=== PATIENT | male | born 1955 | race Caucasian/White ===

== ENCOUNTER → 2020-03-09 | Outpatient (CLI) | payer BC ==
[2020-03-09 15:13] LABS: HCT 45.7 % (39.0-53.0); HGB 15.5 gm/dL (13.0-17.5); MCH 32.5 pg (25.0-35.0); MCV 95.6 fL (80.0-100.0); Mean Platelet Volume 7.9; Platelet Count 269 k/uL (150-450); RBC 4.78 m/uL (4.30-5.90); RDW 12.8 % (11.5-15.5); WBC 6.9 k/uL (3.8-10.6)
[2020-03-09 16:26] LABS: Appearance,Urine Clear (Clear); Bilirubin,Urine Negative (Negative); Blood,Urine Negative (Negative); Color,Urine Light Yellow; Glucose,Urine (UA) Negative (Negative); Ketones,Urine Negative (Negative); Leukocyte Esterase,Urine Negative (Negative); Nitrite,Urine Negative (Negative); Protein,Urine Negative (Negative); Specific Gravity,Urine 1.008 (1.001-1.035); Urobilinogen,Urine <2.0 mg/dL (<2.0)
[2020-03-10 00:03] LABS: African American GFR (CKD) 109.4 (60.0-200.0); Albumin 4.8 g/dL (3.80-4.90); Albumin/Globulin Ratio 1.78 (1.60-3.17); Anion Gap 11.5 mmol/L (4.00-12.00); BUN/Creat Ratio 13.75 Ratio (12.00-20.00); Calcium 9.9 mg/dL (8.7-10.3); Carbon Dioxide 23.5 mmol/L (21.6-31.8); Globulin 2.7 g/dL (1.6-3.3); Non-African American GFR(CKD) 94.4 (60.0-200.0); Potassium 4.2 mmol/L (3.5-5.5); Total Bilirubin 0.7 mg/dL (0.2-1.2); Total Protein 7.5 g/dL (6.2-8.2)
[2020-03-10 04:26] LABS: INR 0.99 (0.90-1.11); Partial Thromboplastin Time 27.1 sec (24.7-29.9); Prothrombin Time 10.6 sec (9.9-11.9)
== END | disposition home or self-care (01) ==
LOC: LABWHC1 13:31
PROVIDERS: ATTEND Orthopaedic Surgery
DX: Z01.818 Encounter for other preprocedural examination (principal)
CPT/HCPCS: 36415; 80053; 81003; 85027; 85610; 85730; 86850; 86900; 86901; 87070

== ENCOUNTER 2020-03-21 07:00 | Day surgery (SDC) | payer BC ==
[2020-03-14 09:10] VITALS: BMI 28.8
[~2020-03-21 07:00] MED LIST: ACETAMINOPHEN TAB 500 MG TAB PO ONE; DEXAMETHASONE SOD PHOSPHATE 10 MG/ML 1 ML VIAL IV ONE; GABAPENTIN 300 MG CAP PO ONE; HYDROmorphone 0.5 MG/0.5 ML SYRINGE IVP PRN; MELOXICAM 7.5 MG TAB PO ONE; MIDAZOLAM 2 MG/2 ML VIAL IV PRN; ONDANSETRON 4 MG/2 ML VIAL IVP ONE; ROPIVACAINE 246.25 MG, EPINEPHrine 0.5 MG, KETOROLAC 30 MG, cloNIDine HCL/PF 80 MCG, WA... MISCELLANE ONE; SCOPOLAMINE 1.5MG/72HR PATCH TRANSDERM ONE; TRANEXAMIC ACID 1,000 MG in SODIUM CHLORIDE 0.9% 100 ML IVPB ONE
[2020-03-21] MEDS ORDERED: ONDANSETRON 4 MG/2 ML VIAL ONE (07:25)
[2020-03-21] MEDS ORDERED: ACETAMINOPHEN TAB 500 MG TAB ONE (07:25)
[2020-03-21] MEDS: LACTATED RINGERS 1,000 ML IV SCH (07:30)
[2020-03-21] MEDS ORDERED: SODIUM CHLORIDE 0.9% IRRIG 1,000 ML BTL IRRIGATION ONE (08:36)
[2020-03-21] MEDS ORDERED: SODIUM CHLORIDE 0.9% 100 ML BAG ONE (08:36)
[2020-03-21] MEDS ORDERED: MIDAZOLAM 2 MG/2 ML VIAL ONE (08:36)
[2020-03-21] MEDS ORDERED: PHENYLEPHRINE-0.9% NACL SYG 1 MG/10 ML SYRINGE ONE (08:36)
[2020-03-21] MEDS ORDERED: TRANEXAMIC ACID 1,000 MG/10 ML VIAL ONE (08:36)
[2020-03-21] MEDS ORDERED: fentaNYL (PF) 50 MCG/ML 2 ML AMP ONE (08:36)
[2020-03-21] MEDS ORDERED: HEPARIN SODIUM,PORCINE 10,000 UNIT/ML 1 ML VIAL ONE (08:36)
[2020-03-21] MEDS ORDERED: PROPOFOL 10 MG/ML 20 ML VIAL IV ONE (08:36)
[2020-03-21] MEDS ORDERED: LACTATED RINGERS 1,000 ML IV ONE (09:49)
--- NOTE | 2020-03-21 10:09 | P.OP ---
Date of Procedure: 03/21/20 Preoperative Diagnosis: Severe osteoarthritis right hip Postoperative Diagnosis: Severe osteoarthritis right hip Procedure(s) Performed: Right total hip arthroplasty with a direct anterior approach Implants: Ya and nephew Polarstem size 6 standard Ya & Nephew R3, 3 hole acetabular shell, 52 mm Ya & Nephew reflection 6.5 mm cancellus screw, 20 mm 2 Ya & Nephew R3, XLPE 20 acetabular liner Ya & Nephew Oxinium femoral head 36 m, +8 All components were press-fit. The articulation is Oxinium on polyethylene. Anesthesia: spinal Surgeon: Dionicio Pedro Terminal Block Assembler #1: Johnny Raphael Estimated Blood Loss (ml): 100 Pathology: other (Femoral head) Condition: stable Disposition: PACU Indications for Procedure: After failure of conservative treatment we discussed the surgical and nonsurgical treatment options at length. Patient wishes to proceed with a total hip arthroplasty with a direct anterior approach. Complications specific to this procedure were discussed at length, including but not limited to infection, leg length discrepancy, dislocation, and nerve injury. Covid-19 was also discussed at length with the patient, and they are aware of the current policies and procedures. The patient was given the option of delaying surgery, but they elect to proceed knowing these risks. Patient is aware of all these complications and informed consent was obtained Operative Findings: The operative findings are consistent with severe osteoarthritis of the right hip Description of Procedure: Patient was seen and evaluated in the preoperative area, consent was reviewed, and the surgical site was marked with a skin marker. Patient was then brought to the operating room and given prophylactic antibiotics intravenously. 1 g of Tranexamic acid was also given. A spinal anesthetic was administered by the anesthesia department. The patient was then placed on the Westover table with the bony prominences well-padded. The hip area was then prepped and draped in usual sterile fashion. A universal timeout was then performed, which confirmed the patient's name, surgical site, ALLERGIES, and procedure being performed. Next the incision site was located at 1 cm distal and 1 cm lateral to the anterior superior iliac spine. The skin and subcutaneous tissues were sharply incised. Incision was carefully dissected down to the fascia overlying the tensor fascia gregory muscle. This fascia was then incised in line with the incision. Next, using blunt finger dissection, the tensor fascia gregory muscle was dissected off its investing fascia. The muscle was then carefully retracted laterally with a cobra retractor over the lateral neck of the femur. Next, the circumflex vessels were identified and cauterized using the AquaMantis device. The anterior hip capsule was then exposed. The capsule was then opened and an inverted T fashion. Cobra retractors were then placed intracapsularly. The proximal femur was then visualized. The femoral neck was then osteotomized appropriate level above the lesser trochanter. Small amount of traction was placed with the Westover table. A small wedge of bone was then removed from the remaining femoral head. Next, using a corkscrew femoral head was easily removed from the acetabulum. On gross visual inspection, the femoral head had complete loss of articular cartilage in multiple periarticular osteophytes. Attention was then turned to the acetabulum. the acetabulum was exposed and any remaining labrum was excised. Sequential reaming of the acetabulum was performed using fluoroscopic guidance. When the appropriate size was reached, a trial was then placed. The position and fit of the trial was checked with fluoroscopy. The trial was then removed. Then, using fluoroscopic guidance, the final implant was impacted at 20 of anteversion and 40 of abduction, and fully seated in the acetabulum. 2 screws were then placed in the acetabulum. Again fluoroscopy was used to check position of the screws. Next, the liner was then impacted, with a 20 elevated liner located in the anterior superior quadrant. Component locking was confirmed. Attention was then directed to the femur. With the aid of the Westover table, the femur was externally rotated to approximately 130, extended, and abducted under the opposite leg. A side hook was then placed under the proximal femur, and the side hook elevator was used to elevate the proximal femur. Retractors were then placed. A capsular release was performed, as well as a release of the conjoined tendon, which afforded excellent visualization of the proximal femur. Next, a box osteotome was used to lateralize the proximal femur. A former hand was then used to locate the femoral canal. Sequential broaching was then performed with appropriate size which afforded excellent fixation in the proximal femur. A trial was then placed with appropriate head and neck, and the hip was gently reduced with the aid of the Westover table. Fluoroscopy was then used to check position of the components, as well as to ensure equal leg lengths. The hip was then gently dislocated and the trials were then removed. Final implants were then impacted and the hip was again reduced. Final fluoroscopic x-rays confirmed that the components were in anatomic position, as well as equal leg lengths. The hip was also taken through range of motion, and found to be stable. The hip was then copiously irrigated with antibiotic solution with pulsatile lavage. The hip was then irrigated with Irrisept solution. The soft tissues were then injected with a ropivacaine solution, which consisted of 246.25 mg of ropivacaine, 0.5 mg of epinephrine, 30 mg of Toradol, 80 g of clonidine, and 48.45 mL of sterile water, for a total of 100 mL of fluid injected. A second dose of 1 g of Tranexamic acid was also given. the fascia was then closed with 2-0 strata fix suture. The subcutaneous tissue was closed with 3-0 Vicryl. The subcuticular tissue was closed with 3-0 strata fix suture. The skin was then closed with Dermabond glue and a sterile silver dressing. The patient was then transferred to the recovery room in stable condition. The recycling assistant SARAI Cooper was required due to the complexity of surgery, and the need for skilled neurosurgical nurse for positioning, draping, exposure, retraction, and closure of the wound.
--- NOTE | 2020-03-21 10:19 | XR ---
Fluoroscopy History: TOTAL RIGHT HIP TOTAL RIGHT HIP. FL TIME 49 SEC. 2 IMAGES SCANNED
[2020-03-21] MEDS ORDERED: hydrOXYzine pamoate 25 MG CAP PO PRN (10:49)
[2020-03-21] MEDS ORDERED: ONDANSETRON 4 MG/2 ML VIAL IVP PRN (10:49)
[2020-03-21] MEDS ORDERED: NALOXONE 0.4 MG/ML 1 ML VIAL IV PRN (10:49)
[2020-03-21] MEDS ORDERED: HYDROmorphone 1 MG/ML 1 ML SYRINGE IVP PRN (10:49)
[2020-03-21] MEDS ORDERED: HYDROcodone/APAP 5-325MG 1 EACH TAB PO PRN ×2 (10:49)
[2020-03-21] MEDS ORDERED: HYDROmorphone 0.5 MG/0.5 ML SYRINGE IVP PRN (10:49)
--- NOTE | 2020-03-21 11:59 | XR ---
EXAMINATION TYPE: XR Hip Limited RT DATE OF EXAM: 03/21/2020 CLINICAL HISTORY: Postoperative evaluation TECHNIQUE: Single portable view of the right hip was submitted. FINDINGS: Noted are changes of total hip arthroplasty with femoral and acetabular components appearin g well seated. Alignment is anatomic. Postsurgical soft tissue changes are evident. IMPRESSION: Satisfactory postoperative alignment
[2020-03-21] MEDS: ASPIRIN 325 MG TAB PO SCH (20:38)
[2020-03-21] MEDS ORDERED: ATORVASTATIN 20 MG TAB PO SCH (21:00)
[2020-03-21] MEDS ORDERED: SENNOSIDES-DOCUSATE SODIUM 1 EACH TAB PO SCH (21:00)
--- NOTE | 2020-03-21 21:10 | P.CONS ---
History of Present Illness - Reason for Consult Consult date: 03/21/20 Medical management Requesting physician: Dionicio Pedro - Chief Complaint Right hip surgery - History of Present Illness Consultation: This is a very pleasant [address] Chavez. Had undergone right total hip arthroplasty. Chronic stable medical conditions include hyperlipidemia, osteoarthritis hypertension. Patient a full cardiac workup prior to surgery. A ll negative. Postprocedure patient doing well. Pain is controlled. Already walked in the hallway. No nausea vomiting. Did tolerate his supper. Review of systems: GEN.: None EYES: None HEENT: None NECK: None RESPIRATORY: None CARDIOVASCULAR: None GASTROINTESTINAL: None GENITOURINARY: None MUSCULOSKELETAL: Joint pains LYMPHATICS: None HEMATOLOGICAL: None PSYCHIATRY: None NEUROLOGICAL: None Past medical history to include: Hyperlipidemia, hypertension, osteoarthritis Social history: Alcohol occasionally. Smoked half a pack a day for about 31 years, stopping 2012. . Retired schoolteacher Physical examination: VITAL SIGNS: 97.8, 67, 16, 123/75, 96% room air GENERAL: BMI 28.9, sitting up in a chair, comfortable. EYES: Pupils equal. Conjunctiva normal. HEENT: External appearance of nose and ears normal, oral cavity grossly normal. NECK: JVD not raised; masses not palpable. HEART: First and second heart sounds are normal; no edema. LUNGS: Respiratory rate normal; clear to auscultation. ABDOMEN: Soft, nontender, liver spleen not palpable, no masses palpable. PSYCH: Alert and oriented x3; mood and affect normal. MUSCULAR skeletal: Dressing over the right hip NEUROLOGICAL: Cranial nerves grossly intact; no facial asymmetry, power and sensation grossly intact. LYMPHATICS: No lymph nodes palpable in the axilla and neck INVESTIGATIONS, reviewed in the clinical context: From 03/09/2020 White count 6.9 hemoglobin 15.5 platelets 269 potassium 4.2 creatinine 0.8 Assessment: -Right total hip arthroplasty -Hyperlipidemia -Primary osteoarthritis -Essential hypertension Plan: Home medications and resume. Patient is on aspirin for DVT prophylaxis per Dr. Quincy guerrero. Care was discussed with the patient. Questions answered. Thank you Dr. Pedro Past Medical History Past Medical History: Cancer, Hyperlipidemia, Osteoarthritis (OA) Additional Past Medical History / Comment(s): HX SKIN CA- LT CHIN- BASAL CELL 1990, HEMORRHOIDS-DIVERTICULOSIS History of Any Multi-Drug Resistant Organisms: None Reported Past Surgical History: Hernia Repair Additional Past Surgical History / Comment(s): COLONOSCOPY(HX POLYPS). INGUINAL HERNIA A CHILD- UNKNOWN SIDE. SKIN CA- BASAL CELL REMOVED 1989 Past Anesthesia/Blood Transfusion Reactions: No Reported Reaction Past Psychological History: No Psychological Hx Reported Smoking Status: Former smoker Past Alcohol Use History: Occasional Additional Past Alcohol Use History / Comment(s): STARTED SMOKING AT AGE 21 QUIT AT AGE 52 SMOKED 1/2PPD Past Drug Use History: Marijuana Additional Drug Use History / Comment(s): OCCASIONAL USE - Past Family History Father Family Medical History: Cancer Additional Family Medical History / Comment(s): LUNG CANCER Medications and Allergies Home Medications Medication Instructions Recorded Confirmed Type Atorvastatin Calcium [Lipitor] 20 mg PO HS 02/03/14 03/21/20 History amLODIPine [Norvasc] 5 mg PO DAILY 03/21/20 03/21/20 History Allergies Allergy/AdvReac Type Severity Reaction Status Date / Time No Known Allergies Allergy Verified 03/21/20 07:19 Physical Exam Vitals: Vital Signs Temp Pulse Pulse Resp BP Pulse Ox 03/21/20 15:21 67 16 03/21/20 13:58 97.8 F 67 16 123/75 03/21/20 13:15 67 16 100/64 96 03/21/20 12:45 65 16 102/60 96 03/21/20 12:30 62 16 100/59 92 L 03/21/20 12:15 56 L 16 99/57 95 03/21/20 12:00 58 L 16 98/54 98 03/21/20 11:52 72 18 100/62 96 03/21/20 11:25 57 L 16 109/63 96 03/21/20 11:10 50 L 16 102/62 98 03/21/20 10:55 53 L 16 107/63 98 03/21/20 10:40 97.2 F L 65 16 97/65 95 03/21/20 07:22 98.8 F 81 17 147/79 98 Intake and Output 03/21/20 03/21/20 03/21/20 06:59 14:59 22:59 Intake Total 1900 Output Total 100 Balance 1800 Intake: IV 1900 Output: Estimated Blood Loss 100 Other: # Voids 1 Weight 86.183 kg
[2020-03-21] MEDS: HYDROmorphone 0.5 MG/0.5 ML SYRINGE IVP PRN (23:33)
[2020-03-22] MEDS: HYDROmorphone 0.5 MG/0.5 ML SYRINGE IVP PRN (03:22)
[2020-03-22] MEDS: LACTATED RINGERS 1,000 ML IV SCH (06:54)
[2020-03-22 07:20] VITALS: BP 136/79; PULSE 78; RESP 16; TEMP 98.7
[2020-03-22 08:04] LABS: Basophils % (A) 0 %; Eosinophils % (A) 0 %; HCT 39.3 % (39.0-53.0); HGB 12.9 gm/dL (13.0-17.5); Lymphocytes # (A) 1.6 k/uL (1.0-4.8); Lymphocytes % (A) 21 %; MCH 31.2 pg (25.0-35.0); MCHC 32.7 g/dL (31.0-37.0); MCV 95.4 fL (80.0-100.0); Mean Platelet Volume 8.1; Monocytes # (A) 0.3 k/uL (0-1.0); Monocytes % (A) 4 %; Neutrophils # (A) 5.7 k/uL (1.3-7.7); Neutrophils % (A) 74 %; Platelet Count 250 k/uL (150-450); RBC 4.12 m/uL (4.30-5.90); RDW 12.5 % (11.5-15.5); WBC 7.7 k/uL (3.8-10.6)
[2020-03-22] MEDS: ASPIRIN 325 MG TAB PO SCH (08:51)
[2020-03-22] MEDS ORDERED: amLODIPine 5 MG TAB PO SCH (09:00)
--- NOTE | 2020-03-22 12:11 | P.DS ---
Providers Expected date of discharge: 03/22/20 Attending physician: Dionicio Pedro Consults: 03/21/20 10:49 Consult Physician Routine Consulting Provider: Neel Noel Consult Reason/Comments: medical management Do you want consulting provider notified?: Yes Primary care physician: Delgado Chavez - Discharge Diagnosis(es) (1) Osteoarthritis of right hip Current Visit: Yes Status: Acute (2) Status post total hip replacement, right Current Visit: Yes Status: Acute Hospital Course: This is a 64-year-old male with known history of degenerative arthritis of the right hip. The patient presents for evaluation. After discussion and consideration patient elects to proceed with total hip arthroplasty. The patient is seen preoperatively by Dr. Pedro and cleared for surgery. Patient is admitted to [facility] on 03/21/2020 for total hip arthr oplasty. The procedures performed without complication or sequelae. The patient is doing well postoperatively. Labs and vital signs are stable on day of discharge. On day of discharge patient's hip incision is healing well. There is minimal erythema. There is no drainage noted at this time. There is minimal soft tissue swelling to the hip and thigh. Patient has full foot and ankle motion w ithout difficulty or pain. Neurovascular status to the right lower extremity is intact. Patient is discharged home in good condition. Opioid start talking form is discussed and signed at bedside. Please see med rec for accurate list of home medications. Plan - Discharge Summary Discharge Rx Participant: Yes New Discharge Prescriptions: New Sennosides-Docusate Sodium [Senokot-S] 2 each PO HS #30 tab Aspirin 325 mg PO BID #60 tab HYDROcodone/APAP 5-325MG [Lamoure 5-325] 1 - 2 tab PO Q6HR PRN #48 tab PRN Reason: Pain Continue Atorvastatin Calcium [Lipitor] 20 mg PO HS amLODIPine [Norvasc] 5 mg PO DAILY Discharge Medication List Atorvastatin Calcium [Lipitor] 20 mg PO HS 02/03/14 [History] amLODIPine [Norvasc] 5 mg PO DAILY 03/21/20 [History] Aspirin 325 mg PO BID #60 tab 03/22/20 [Rx] HYDROcodone/APAP 5-325MG [Lamoure 5-325] 1 - 2 tab PO Q6HR PRN #48 tab 03/22/20 [Rx] Sennosides-Docusate Sodium [Senokot-S] 2 each PO HS #30 tab 03/22/20 [Rx] Follow up Appointment(s)/Referral(s): Delgado Chavez DO [Primary Care Provider] - 1 Week (office will call with appontment time) [facility], [NON-STAFF] - (Expect a phone call from [facility] by tomorrow afternoon. First visit should be within 24 hours of discharge. ) Dionicio Pedro DO [Doctor of Osteopathic Medicine] - 04/06/20 1:00 pm (With Freda) Patient Instructions/Handouts: How to Choose and Use a Walker (GEN), Anterior Hip Replacement (DC) Activity/Diet/Wound Care/Special Instructions: Weight bear as tolerated with walker. Remove dressing in 10 days. Wear compression stockings until follow up Take pain medications as prescribed. Ice incision as needed. Report any problems or concerns to [facility] at [phone] Discharge Disposition: HOME WITH HOME HEALTH SERVICES
--- NOTE | 2020-03-22 23:30 | P.PN ---
Progress Note - Text Progress Note Date: 03/22/20 - Chief Complaint Right hip surgery Consultation: This is a very pleasant [address] Chavez. Had undergone right total hip arthroplasty. Chronic stable medical conditions include hyperlipidemia, osteoarthritis hypertension. Patient a full cardiac workup prior to surgery. All negative. Today-sitting up. Feeling well. Pain control. Did work with therapy. Up in the hallway Review of systems: Was done for constitutional, cardiovascular, GI, pulmonary. Musculoskeletal relevant finding as above Current medications reviewed in today's electronic records Physical examination: VITAL SIGNS: 98.7, 78, 16, 136/79, 99% room air GENERAL: Sitting up in a chair, comfortable EYES: Pupils equal. Conjunctiva normal. HEENT: External appearance of nose and ears normal, oral cavity grossly normal. NECK: JVD not raised; masses not palpable. HEART: First and second heart sounds are normal; no edema. LUNGS: Respiratory rate normal; clear to auscultation. ABDOMEN: Soft, nontender, liver spleen not palpable, no masses palpable. PSYCH: Alert and oriented x3; mood and affect normal. MUSCULAR skeletal: Dressing over the right hip INVESTIGATIONS, reviewed in the clinical context: White count 7.7 hemoglobin 12.9 From 03/09/2020 White count 6.9 hemoglobin 15.5 platelets 269 potassium 4.2 creatinine 0.8 Assessment: -Right total hip arthroplasty -Hyperlipidemia -Primary osteoarthritis -Essential hypertension Plan: Continue current medications replant. Dory. Discussed with the patient. Thank you Dr. Pedro
== END 2020-03-22 13:39 | disposition home health service (06) ==
LOC: OR 07:00 → 4SSUR 10:06 → EDSTATUS 15:00 → OR 03-22 13:39
PROVIDERS: ATTEND Orthopaedic Surgery
DX: M16.11 Unilateral primary osteoarthritis, right hip (principal); I10 Essential (primary) hypertension; E78.5 Hyperlipidemia, unspecified; N40.0 Benign prostatic hyperplasia without lower urinary tract symptoms; K21.9 Gastro-esophageal reflux disease without esophagitis; E78.00 Pure hypercholesterolemia, unspecified; Z79.891 Long term (current) use of opiate analgesic; Z85.828 Personal history of other malignant neoplasm of skin; Z87.19 Personal history of other diseases of the digestive system; Z87.891 Personal history of nicotine dependence; Z79.899 Other long term (current) drug therapy; Z86.010 Personal history of colon polyps; Z80.1 Family history of malignant neoplasm of trachea, bronchus and lung
CPT/HCPCS: 97162; 97166; 86891; 86900; 86901; 85025; 86850; 88300; 73501 ×2; 27130; C1776; J2250; J0171; J1644; J1100; J0690 ×2; J2405; J3010; J1885; J2795; J2370; J2704; J0735; J1170 ×2